=== PATIENT | female | born 1960 | race Caucasian/White ===

== ENCOUNTER 2017-08-17 13:46 | Emergency (ER) | payer BC ==
--- NOTE | 2017-08-17 14:53 | EDM.PDOC ---
ED HPI GENERAL MEDICAL PROBLEM - General Chief Complaint: Allergic Reaction Stated Complaint: CAME BY AMBULANCE, GENERAL Time Seen by Provider: 08/17/17 14:52 Source of Information: Reports: Patient, EMS, Old Records, RN, RN Notes Reviewed History Limitations: Reports: No Limitations - History of Present Illness INITIAL COMMENTS - FREE TEXT/NARRATIVE: Pt c/o allergic reaction after eating. Pt has some known food allergies, so she took benadryl and now she is feeling better. She began to have some gen. itching and hives, but after the benadryl is already improving. Denies wheezing , shortness of breath, or chest pain. Onset: Today Duration: Improving Location: Reports: Generalized Quality: Reports: Other (itching) Severity: Mild Improves with: Reports: None Worsens with: Reports: None Associated Symptoms: Reports: No Other Symptoms - Related Data Allergies Allergy/AdvReac Type Severity Reaction Status Date / Time corn Allergy Joint Pain Verified 08/17/17 13:53 nut - unspecified Allergy Anaphylactic Verified 08/17/17 13:53 Shock wheat Allergy Other Verified 08/17/17 13:53 Home Meds: Home Meds ALPRAZolam [Alprazolam] 0.25 mg PO DAILY 08/17/17 [History] Cetirizine [ZyrTEC] 10 mg PO DAILY 08/17/17 [History] Citalopram [Citalopram HBr] 20 mg PO DAILY 08/17/17 [History] Past Medical History - Past Health History Medical/Surgical History: Denies Medical/Surgical History Social & Family History - Family History Family Medical History: Noncontributory - Tobacco Use Smoking Status *Q: Never Smoker Second Hand Smoke Exposure: No - Recreational Drug Use Recreational Drug Use: No - Living Situation & Occupation Living situation: Reports: with Family Occupation: Employed ED ROS ALLERGIC REACTION - Review of Systems Review Of Systems: ROS reveals no pertinent complaints other than HPI. ED EXAM GENERAL NO PERIP PULSE - Physical Exam Exam: See Below Exam Limited By: No Limitations General Appearance: Alert, WD/WN, No Apparent Distress Eye Exam: Bilateral Eye: Normal Inspection Ears: Normal External Exam, Normal Canal Nose: Normal Inspection, Normal Mucosa, No Blood Throat/Mouth: Normal Inspection, Normal Lips, Normal Teeth, Normal Gums, Normal Oropharynx, Normal Voice, No Airway Compromise. No: Inflammation Head: Atraumatic, Normocephalic Neck: Normal Inspection, Supple, Non-Tender, Full Range of Motion Respiratory/Chest: No Respiratory Distress, Lungs Clear, Normal Breath Sounds, No Accessory Muscle Use, Chest Non-Tender Cardiovascular: Normal Peripheral Pulses, Regular Rate, Rhythm, No Edema GI/Abdominal: Normal Bowel Sounds, Soft, Non-Tender, No Distention Back Exam: Normal Inspection Extremities: Normal Inspection Neurological: Alert, Oriented, CN II-XII Intact, Normal Cognition, Normal Gait, No Motor/Sensory Deficits Psychiatric: Normal Affect, Normal Mood Skin Exam: Warm, Dry, Intact, Normal Color, No Rash Course - Vital Signs Last Recorded V/S: Last Vital Signs Temp 36.3 C 08/17/17 13:48 Pulse 54 L 08/17/17 13:48 Resp 18 08/17/17 13:48 BP 161/69 H 08/17/17 13:48 Pulse Ox 98 08/17/17 13:48 Departure - Departure Time of Disposition: 15:16 Disposition: Home, Self-Care 01 Condition: Good Clinical Impression: Allergic reaction Qualifiers: Encounter type: initial encounter Qualified Code(s): T78.40XA - Allergy, unspecified, initial encounter - Discharge Information Instructions: Anaphylactic Reaction, Adult, Food Allergy Referrals: Navneet Rubio MD [Primary Care Provider] - Forms: ED Department Discharge Additional Instructions: Rx: Prednisone 20mg *Take with a meal. Use over the counter Benadryl (Diphenhydramine) 25mg: Take 2 tablets by mouth every 6 hours until itching or other symptoms of allergic reaction completely resolve. Return to ER if worse at any time.
== END 2017-08-17 15:27 | disposition home or self-care (01) ==
LOC: DL.ED 13:46
DX: T78.40XA Allergy, unspecified, initial encounter (principal); Z91.018 Allergy to other foods; Z79.899 Other long term (current) drug therapy
CPT/HCPCS: 99283